=== PATIENT | female | born 1975 | race Caucasian/White ===

== ENCOUNTER 2023-03-09 16:53 | Emergency (ER) | payer BC ==
[~2023-03-09] VITALS: Ht 162.6 cm; Wt 104.3 kg
--- NOTE | 2023-03-09 16:55 | NUR ---
Patient to ER bed 04 to gown for evaluation. Side rails up.
[2023-03-09 16:56] VITALS: BP_SYST 122
--- NOTE | 2023-03-09 17:08 | NUR ---
xray at bedside at this time
[2023-03-09 18:01] LABS: BASOPHILS % (AUTO) 0.3 % (0.0-2.0); EOSINOPHILS % (AUTO) 0.4 % (0.0-4.0); HEMATOCRIT 39.2 % (36-48); HEMOGLOBIN 13.3 g/dL (12.0-16.0); LYMPHOCYTES # (AUTO) 1.3 K/uL (1.0-5.5); LYMPHOCYTES % (AUTO) 12.7 % (20.5-51.5); MEAN CORPUSCULAR HEMOGLOBIN 32 pg (27-31); MEAN CORPUSCULAR HGB CONC 34 % (32-36); MEAN CORPUSCULAR VOLUME 93 fL (79.0-98.0); MONOCYTES # (AUTO) 0.5 K/uL (0.0-1.0); NEUTROPHILS # (AUTO) 8.6 K/uL (1.8-7.7); NEUTROPHILS % (AUTO) 81.6 % (40.0-70.0); PLATELET COUNT (AUTO) 233 K/uL (130-430); RED CELL DISTRIBUTION WIDTH 12.9 % (9.0-15.0); WHITE BLOOD COUNT (AUTO) 10.5 K/uL (4.8-10.8)
[2023-03-09 18:19] LABS: BILIRUBIN,URINE NEGATIVE (NEGATIVE); BLOOD, URINE NEGATIVE (NEGATIVE); COLOR,URINE YELLOW (YELLOW); GLUCOSE,URINE NEGATIVE (NEGATIVE); KETONES,URINE 1+ (NEGATIVE); LEUKOCYTE ESTERASE ,URINE TRACE (NEGATIVE); NITRITE, URINE NEGATIVE (NEGATIVE); PROTEIN URINE NEGATIVE (NEGATIVE)
[2023-03-09 18:22] LABS: CALCIUM 8.9 mg/dL (8.4-11.0); CREATININE 0.82 mg/dL (0.55-1.30)
[2023-03-09 18:26] LABS: CLARITY/URINE HAZY (CLEAR)
[2023-03-09 18:26] LABS: ALBUMIN 3.8 g/dL (3.4-4.8); TOTAL BILIRUBIN 1.9 mg/dL (0.0-1.0)
[2023-03-09 18:33] LABS: BACTERIA,URINE MODERATE /HPF (None Seen); MUCUS,URINE None Seen /LPF (None Seen); RBC,URINE NONE SEEN /HPF (0-3); URINE AMORPHOUS PHOSPHATES 3+ /HPF (None Seen)
--- NOTE | 2023-03-09 19:25 | NUR ---
Pt is noted in bed alert, responsive as report is received from the off going nurse that Pt came in C/O ePIGASTRIC Pain radiating to chest and back.
--- NOTE | 2023-03-09 20:17 | NUR ---
PT STATED SHE IS IN PAIN AND THAT IT IS RETURNING. PAIN LOCATED CENTER OF THE CHEST RADIATING TO THE BACK.
--- NOTE | 2023-03-09 20:59 | NUR ---
Pt is noted off the unit to CT after been mediacted with Lodicaine 30ML PO and Mylanta 30ML PO. Pt care continue .
[2023-03-09] MEDS ORDERED: MAG-AL HYDROX/SIMETH 30 ML UDC PO ONE (21:00)
[2023-03-09] MEDS ORDERED: LIDOCAINE VISCOUS 2%, 15 ML UDC MM ONE (21:00)
--- NOTE | 2023-03-09 21:10 | NUR ---
Pt is noted back from CT. Pt care continue.
[2023-03-09] MEDS ORDERED: ESOM40CA53 PO (22:54)
[2023-03-09 23:00] VITALS: BP_SYST 124
--- NOTE | 2023-03-09 23:00 | NUR ---
Pt is noted off the unit stable as all discharge instructions given with no S/S off distress.
== END 2023-03-09 23:00 | disposition home or self-care (01) ==
LOC: SED 16:53
DX: K80.20 Calculus of gallbladder without cholecystitis without obstruction (principal); R10.13 Epigastric pain; K76.0 Fatty (change of) liver, not elsewhere classified; R11.10 Vomiting, unspecified; Z79.899 Other long term (current) drug therapy
CPT/HCPCS: 99285; 74176; 76705; 71045; 80053; 81000; 82150; 84703; 83690; 85025; 87086; 84484; 36415; 93005; 76376; 83605; J2001